=== PATIENT | female | born 1985 | race Caucasian/White ===

== ENCOUNTER 2018-10-02 01:57 | Inpatient (IN) | payer BC ==
[2018-10-02] MEDS ORDERED: Lidocaine 1%* 5 ML VIAL ONE (02:11)
[2018-10-02] MEDS ORDERED: Lactated Ringers 1000 ML Bag* 1,000 ML IV ONE ×2 (03:41→05:05)
[2018-10-02] MEDS ORDERED: Buffered Lidocaine 1% SYRIN* 1 ML/SYRINGE INTRADERM ONE (03:41)
--- NOTE | 2018-10-02 03:58 | HP ---
General Information - Reason for Visit contractions q 2 minutes/ gfm/ no rom - General Information Maternal Age: 33 Grav: 2 Para: 1 SAB: 0 IEA: 0 Estimated Due Date: 09/22/18 Determined By: LMP Maternal Blood Type and Rh: A Positive - Results this Serology/RPR Result: Non-Reactive Rubella Result: Immune HBsAg Result: Negative HIV Result: Negative GBS Culture Result: Negative Past Medical History Delivery History: Hx C/Section Pertinent Past Medical History: Non-Contributory Pertinent Past Surgical History: See Records Pertinent Family History: Non-Contributory - Antepartal Records Antepartal Records: Reviewed, Uncomplicated Review of Systems Constitutional: Uncomfortable CV Complaint: No Respiratory: Shortness of Breath: No Gastrointestinal: No Nausea/Vomiting Genitourinary: No Bleeding, No Leaking Fluid Musculoskeletal: Contractions Movement: Normal Exam Allergies/Adverse Reactions: Allergies MS Clindamycin [Clindamycin] Allergy (Severe, Verified 10/02/18 02:30) Hives MS Penicillins [Penicillins] Allergy (Severe, Verified 10/02/18 02:30) Hives MS Cefaclor [From Ceclor] Allergy (Intermediate, Verified 10/02/18 02:30) Hives Vital Signs 10/02/18 02:15 Temperature 98.2 F Pulse Rate 88 Respiratory 16 Rate Blood Pressure 130/70 (mmHg) - Measurements Height: 5 ft 9 in Weight: 223 lb Weight in lbs: 223.778826 Body Mass Index (BMI): 32.9 Pre- Weight: 178 lb Weight Gained This : 45 lbs and 0 ozs - Exam Breast: Breast Exam Deferred Extremities: Edema - +2 Heart: Normal Rhythm/Heart Sounds HEENT: No Significant Findings Lungs: Clear Bilaterally Rectal: Rectal Exam Deferred Reflexes: DTR 2+ Thyroid: No Thyromegaly Targeted Exam Findings Cervical Exam: 2cm Effacement: 70% Station: -2 Presenting Part: Vertex Membrane Status: Intact EFM Findings - External Monitor Findings Baseline Heart Rate: 140 External Monitor Findings: Accelerations Present, Variability Moderate Contractions: Regular, Moderate, 45-90 Seconds Assessment/Plan - Obstetrical Risk Factors Obstetrical Risk Factors: Previous C/Section in Labor - Plan Plan: Admit - Anticipate Vaginal Delivery - discussed epidural and arom as an option/ discussed risks associated with pitocin. questions answered . pt is considering
[2018-10-02] MEDS ORDERED: Lactated Ringers 1000 ML Bag* 1,000 ML IV SCH ×3 (04:00→13:00)
[2018-10-02 04:01] LABS: ABS Basophils 0 10^3/ul (0-0.2); ABS Eosinophils 0.1 10^3/ul (0-0.6); ABS Lymphocytes 1.4 10^3/ul (1.0-4.8); ABS Monocytes 0.6 10^3/ul (0-0.8); ABS Neutrophils 11.2 10^3/ul (1.5-7.7); ABS Nucleated RBC 0 10^3/ul; Eosinophil % 0.6 %; Hematocrit 39 % (35-47); Hemoglobin 12.9 g/dl (12.0-16.0); Lymphocyte % 10.2 %; Mean Corpuscular HGB Conc 33 g/dl (31-36); Mean Corpuscular Hemoglobin 29 pg (27-31); Mean Corpuscular Volume 88 fL (80-97); Nucleated Red Blood Cells % 0; Platelet Count 207 10^3/ul (150-450); Red Blood Count 4.37 10^6/ul (4.00-5.40); Red Cell Distribution Width 14 % (10.5-15); White Blood Count 13.3 10^3/ul (3.5-10.8)
[2018-10-02] MEDS ORDERED: OBEPIDURAL* 250 ML EPIDURAL ONE (04:55)
[2018-10-02] MEDS ORDERED: Sodium Citrate/Citric Acid* 15 ML UDC PO PRN (05:05)
[2018-10-02] MEDS ORDERED: Phenylephrine IV* 40 MCG/ML 10 ML SYRINGE IV PUSH PRN ×2 (05:05)
[2018-10-02] MEDS ORDERED: OBEPIDURAL* 250 ML EPIDURAL SCH (06:00)
[2018-10-02] MEDS ORDERED: Phenylephrine IV* 40 MCG/ML 10 ML SYRINGE ONE (07:12)
--- NOTE | 2018-10-02 08:09 | PN ---
Progress Note - Progress Note Date of Service: 10/02/18 Note: Pt with h/o C/S about 3 yrs ago for Cat II FHT when cx was only about 4cm dilated. Presented here in labor at about 0300, cervix 5cm at about 0600. Cervix still 5cm/80%/-1 now. Epidural working well, but ctx decreased to only about Q5 min. Since there is no formal consent on pt's chart, we did discuss the risks and benefits of a TOLAC/ vs repeat C/S this AM. Reviewed risks of uterine rupture, chorio, injury, emergency . We also discussed the factors that can increase rupture risk, especially a prolonged labor. Adding low dose pitocin to augment labor in her situation may increase the risk a little, but I do think that risk is not much different than what she has in active labor as long as labor is not very long. After discussion, pt definitely desires to continue TOLAC and she would like to add pitocin to hopefully allow labor to continue. All questions answered.
[2018-10-02] MEDS ORDERED: Oxytocin in LR* 20 UNITS/1,000 ML BAG IVPB SCH ×2 (09:00→13:00)
[2018-10-02] MEDS ORDERED: Dibucaine 1% 28.35 GM TUBE PR PRN (12:26)
[2018-10-02] MEDS ORDERED: Witch Hazel PAD* JAR TOPICAL PRN (12:26)
[2018-10-02] MEDS ORDERED: Simethicone TAB* 80 MG TAB.CHEW PO SCH (12:30)
--- NOTE | 2018-10-02 12:43 | PROCNOTE ---
[facility] OB: Delivery Note - Delivery A Date of : 10/02/18 Time of : 11:59 Sharon Sex: Male Weight at : 8 lb 8 oz Score 1 Minute: 9 Score 5 Minutes: 9 Gestational Age in Weeks and Days at Delivery: 41 Weeks and 3 Days Delivery Method: Spontaneous Vaginal Labor: Spontaneous Reason for Section: had successful Did Patient attempt ?: Yes, Successful Amniotic Fluid: Clear Estimated Blood Loss: 400 Anesthesia/Analgesia: CEI for Labor Delivered By: Jesse Warner - Nursery Level of Nursery: Regular/Bedside - Perineum Perineal Injury: 2nd Degree Perineal Repair: By Delivering Practioner - Events Delivery Events of Note: Pitocin During Labor - Additional Delivery Notes Additional Delivery Notes: Pt presented in labor with h/o C/S, desiring TOLAC. She progressed well to 5cm and received an epidural. Ctx frequency decreased significantly at that point, so low dose pitocin added which worked very well. Pt reached C/C/+1. She pushed about 15 min to deliver the head in a controlled fashion. Anterior shoulder and arm delivered since posterior was tight. Body delivered easily. Infant cried quickly. Cord doubly clamped and cut by father. IV pitocin increased. Intact placenta delivered spontaneously. Fundus firm. 1% lidocaine injected and a 2nd degree perineal lac was repaired with 3-0 Vicryl Rapide in the usual fashion.
[2018-10-02] MEDS: Ibuprofen TAB* 600 MG PO PRN (18:47)
[2018-10-02] MEDS: Docusate CAP* 100 MG PO SCH (20:01)
[2018-10-03] MEDS: Ibuprofen TAB* 600 MG PO PRN ×3 (00:51→13:36)
[2018-10-03] MEDS: Acetaminophen TAB* 325 MG PO PRN ×2 (06:28→10:45)
[2018-10-03 07:42] LABS: ABS Basophils 0 10^3/ul (0-0.2); ABS Eosinophils 0.2 10^3/ul (0-0.6); ABS Lymphocytes 1.9 10^3/ul (1.0-4.8); ABS Monocytes 0.9 10^3/ul (0-0.8); ABS Neutrophils 8.5 10^3/ul (1.5-7.7); ABS Nucleated RBC 0 10^3/ul; Eosinophil % 1.8 %; Hematocrit 32 % (35-47); Hemoglobin 10.7 g/dl (12.0-16.0); Lymphocyte % 16.4 %; Mean Corpuscular HGB Conc 33 g/dl (31-36); Mean Corpuscular Hemoglobin 29 pg (27-31); Mean Corpuscular Volume 88 fL (80-97); Mean Platelet Volume 8.3 fL (7.4-10.4); Nucleated Red Blood Cells % 0; Platelet Count 162 10^3/ul (150-450); Red Blood Count 3.65 10^6/ul (4.00-5.40); Red Cell Distribution Width 14 % (10.5-15); White Blood Count 11.6 10^3/ul (3.5-10.8)
[2018-10-03] MEDS ORDERED: Ferrous Gluconate TAB* 324 MG TAB PO SCH (09:00)
[2018-10-03] MEDS: Docusate CAP* 100 MG PO SCH ×2 (10:45→13:38)
[2018-10-03 12:42] VITALS: BP 112/69
== END 2018-10-03 16:39 | disposition home or self-care (01) | DRG 560 ==
LOC: MCHOBOUT 01:57 → MCHOB 03:05
PROVIDERS: ADMIT Obstetrics & Gynecology; ATTEND Obstetrics & Gynecology
PROC: 10E0XZZ Delivery of Products of Conception, External Approach (ICD-10-PCS; principal; 2018-10-02)
PROC: 10907ZC Drainage of Amniotic Fluid, Therapeutic from Products of Conception, Via Natural or Artificial Opening (ICD-10-PCS; 2018-10-02)
PROC: 0KQM0ZZ Repair Perineum Muscle, Open Approach (ICD-10-PCS; 2018-10-02)
DX: O48.0 Post-term pregnancy (principal); Z37.0 Single live birth; O70.1 Second degree perineal laceration during delivery; O34.211 Maternal care for low transverse scar from previous cesarean delivery; Z3A.41 41 weeks gestation of pregnancy
CPT/HCPCS: 36415; 85025; 86850; 86900; 86901; A9270-GY